=== PATIENT | male | born 1990 | race Caucasian/White ===

== ENCOUNTER 2020-12-07 06:35 | Day surgery (SDC) | payer BC ==
[2020-12-03 11:37] VITALS: BMI 21.4
[2020-12-07] MEDS ORDERED: AFRIN NASAL MIST 15 ML BOT ONE ×2 (06:43→06:52)
[2020-12-07] MEDS ORDERED: Bacitracin Zinc Ointment 30 gm TUBE ONE (06:43)
[2020-12-07] MEDS ORDERED: Lidocaine 1% w/Epinephrine 1:100K 20 ML VIAL ONE (06:43)
[2020-12-07] MEDS ORDERED: Famotidine/PF 20 mg/2ml Vial ONE (06:55)
[2020-12-07] MEDS ORDERED: Meperidine HCl/PF 25 MG/ML VIAL ONE (06:55)
[2020-12-07] MEDS ORDERED: Fentanyl 100 MCG/2 ML VIAL ONE (06:55)
[2020-12-07] MEDS ORDERED: Lidocaine 1% PF 5 ML VIAL ONE (08:07)
[2020-12-07] MEDS ORDERED: PROPOFOL 200 MG/20 ML VIAL ONE (08:07)
[2020-12-07] MEDS ORDERED: Metoclopramide HCl 10 MG/2 ML VIAL ONE (08:07)
[2020-12-07] MEDS ORDERED: Ketorolac Tromethamine 30 MG/ML VIAL ONE (08:07)
[2020-12-07] MEDS ORDERED: Ondansetron PF 4 MG/2 ML Vial ONE (08:07)
[2020-12-07] MEDS ORDERED: Naloxone HCl 0.4 mg/ml Vial ONE (08:07)
[2020-12-07] MEDS ORDERED: Dexamethasone 20 MG/5 ML VIAL ONE (08:07)
== END 2020-12-07 12:10 | disposition home or self-care (01) ==
LOC: SDC 06:35
PROVIDERS: ATTEND Student in an Organized Health Care Education/Training Program
PROC: 09QK0ZZ Repair Nasal Mucosa and Soft Tissue, Open Approach (ICD-10-PCS; principal; 2020-12-07)
PROC: 09SM0ZZ Reposition Nasal Septum, Open Approach (ICD-10-PCS; principal; 2020-12-07)
PROC: 09TL0ZZ Resection of Nasal Turbinate, Open Approach (ICD-10-PCS; principal; 2020-12-07)
DX: J34.2 Deviated nasal septum (principal); J34.3 Hypertrophy of nasal turbinates; J34.89 Other specified disorders of nose and nasal sinuses; K13.79 Other lesions of oral mucosa; K50.90 Crohn's disease, unspecified, without complications; Z79.899 Other long term (current) drug therapy
CPT/HCPCS: C1889; J0690; J1100; J1885; J2175; J2310; J2405; J2704; J2765; J3010; S0028